=== PATIENT | female | born 1985 | race Caucasian/White ===

== ENCOUNTER 2021-08-02 21:51 | Emergency (ER) | payer OTHER ==
[2021-08-02 22:08] VITALS: BP 129/88; PULSE 96; TEMP 97; BMI 29.2
[2021-08-02] MEDS ORDERED: FAMOTIDINE 20 MG TABLET PO ONE (22:56)
[2021-08-02] MEDS ORDERED: diphenhydrAMINE HCL 50 MG CAPSULE PO ONE (22:56)
[2021-08-02 23:19] LABS: BASO % 0.4 % (0-2.0); EOS % 3.8 % (0-4.5); HEMOGLOBIN 13.2 GM/dL (10.7-15.3); MCH 28.9 pg (25.7-33.7); MCHC 32.9 g/dl (32.0-36.0); MEAN CELL VOLUME 87.8 fl (80-96); MEAN PLT VOLUME 8.2 fl (7.5-11.1); NEUT % 55.8 % (42.8-82.8); PLATELET COUNT 287 10^3/uL (134-434); RBC 4.56 M/mm3 (3.60-5.2); RDW 14.5 % (11.6-15.6); WHITE BLOOD COUNT 10.6 K/mm3 (4.0-10.0)
[2021-08-02] MEDS ORDERED: FAMOTIDINE 20 MG TABLET ONE (23:25)
[2021-08-02] MEDS ORDERED: diphenhydrAMINE HCL 25 MG CAPSULE (FP) PO ONE (23:25)
[2021-08-02] MEDS ORDERED: predniSONE 20 MG TABLET (UD) PO ONE (23:30)
[2021-08-02] MEDS ORDERED: predniSONE 10 MG TABLET (UD) ONE (23:38)
[2021-08-02] MEDS ORDERED: predniSONE 20 MG TABLET (UD) ONE (23:38)
[2021-08-02 23:39] LABS: CALCIUM 8.8 mg/dL (8.5-10.1)
[2021-08-02 23:40] LABS: ALBUMIN 3.7 g/dl (3.4-5.0)
[2021-08-02 23:43] LABS: CREATININE 0.9 mg/dL (0.55-1.3)
[2021-08-02 23:45] LABS: BILIRUBIN,TOTAL 0.4 mg/dL (0.2-1); TOT PROT 7.3 g/dl (6.4-8.2)
[2021-08-03] MEDS ORDERED: predniSONE 20 MG TABLET (UD) PO SCH (10:00)
== END 2021-08-03 02:36 | disposition home or self-care (01) ==
LOC: JER 21:51
DX: L50.9 Urticaria, unspecified (principal); R20.2 Paresthesia of skin
CPT/HCPCS: 36415; 70450-TC; 80053; 84703; 85025; 99284-25

== ENCOUNTER 2023-10-09 14:05 | Emergency (ER) | payer OTHER ==
[2023-10-09 14:25] VITALS: BP 143/85; PULSE 62; RESP 18; TEMP 98.2; BMI 29.2
[2023-10-09] MEDS ORDERED: diphenhydrAMINE HCL 25 MG CAPSULE (FP) PO ONE (15:04)
[2023-10-09] MEDS ORDERED: LORATADINE 10 MG TABLET ONE (15:12)
[2023-10-09] MEDS: LORATADINE 10 MG TABLET PO ONE (15:13)
== END 2023-10-09 15:52 | disposition home or self-care (01) ==
LOC: JER 14:05
DX: T78.40XA Allergy, unspecified, initial encounter (principal); R22.0 Localized swelling, mass and lump, head
CPT/HCPCS: 99283-25

== ENCOUNTER 2024-04-20 22:05 | Emergency (ER) | payer OTHER ==
[2024-04-20 22:12] VITALS: TEMP 97.9; BMI 29.2
[2024-04-20] MEDS ORDERED: ACETAMINOPHEN INJECTION 100 ML ONE (22:46)
[2024-04-20] MEDS: ACETAMINOPHEN 1000 MG/100 ML BAG IVPB ONE (23:16)
[2024-04-20] MEDS: SODIUM CHLORIDE 0.9% 500 ML INFUS.BAG IV ONE (23:16)
[2024-04-20 23:19] LABS: HEMATOCRIT 39.8 % (32.4-45.2); HEMOGLOBIN 13.1 GM/dL (10.7-15.3); MCH 28.2 pg (25.7-33.7); MEAN CELL VOLUME 85.4 fl (80-96); MEAN PLT VOLUME 7.9 fl (7.5-11.1); PLATELET COUNT 295 10^3/uL (134-434); RBC 4.66 M/mm3 (3.60-5.2); RDW 14.2 % (11.6-15.6); WHITE BLOOD COUNT 8.1 K/mm3 (4.0-10.0)
[2024-04-20 23:41] LABS: POTASSIUM 3.2 mmol/L (3.5-5.1)
[2024-04-20 23:44] LABS: ALBUMIN 3.5 g/dl (3.4-5.0); BLOOD UREA NITROGEN 17.6 mg/dL (7-18); CALCIUM 8.9 mg/dL (8.5-10.1); MAGNESIUM 1.8 mg/dL (1.8-2.4)
[2024-04-20 23:48] LABS: PHOSPHOROUS 2.5 mg/dL (2.5-4.9)
[2024-04-20 23:49] LABS: BILIRUBIN,TOTAL 0.7 mg/dL (0.2-1); TOT PROT 6.5 g/dl (6.4-8.2)
[2024-04-21] LABS: ANISOCYTOSIS 0; MACROCYTOSIS 0
[2024-04-21] MEDS ORDERED: POTASSIUM CHLORIDE ORAL LIQUID 20 MEQ/15 ML ONE (00:12)
[2024-04-21] MEDS: POTASSIUM CHLORIDE ORAL LIQUID 20 MEQ/15 ML PO ONE (00:19)
[2024-04-21 01:07] LABS: EPI CELLS >36 /uL (0-25.1); HYALINE CASTS 0 /uL (0-3.1); PH,URINE 5.5 (5.0-8.0); URINE APPEARANCE CLEAR; URINE BACTERIA 478 /uL (0-1359); URINE BILIRUBIN NEGATIVE (NEGATIVE); URINE COLOR YELLOW; URINE GLUCOSE (UA) NEGATIVE (NEGATIVE); URINE KETONE NEGATIVE (NEGATIVE); URINE LEUK ESTERASE NEGATIVE (NEGATIVE); URINE NITRITE NEGATIVE (NEGATIVE); URINE PROTEIN TRACE (NEGATIVE); URINE RBC 196 /uL (0-23.9); URINE UROBILINOGEN 0.2 mg/dL (0.2-1.0); URINE WBC 12 /uL (0-25.8)
[2024-04-21] MEDS ORDERED: AZITHROMYCIN 500 MG TABLET ONE (01:20)
[2024-04-21] MEDS ORDERED: AMOXICILLIN 500 MG CAPSULE (FP) ONE (01:20)
[2024-04-21] MEDS: AMOXICILLIN 500 MG CAPSULE (FP) PO ONE (01:26)
[2024-04-21] MEDS: SODIUM CHLORIDE 0.9% 500 ML INFUS.BAG IV ONE (01:26)
[2024-04-21] MEDS: AZITHROMYCIN 500 MG TABLET PO ONE (01:26)
[2024-04-21 02:59] VITALS: BP 110/71; PULSE 71; RESP 16
== END 2024-04-21 03:25 | disposition home or self-care (01) ==
LOC: JER 22:05
PROC: 3E033NZ Introduction of Analgesics, Hypnotics, Sedatives into Peripheral Vein, Percutaneous Approach (ICD-10-PCS; principal; 2024-04-20)
DX: R53.1 Weakness (principal); J18.9 Pneumonia, unspecified organism; R07.89 Other chest pain; M54.50 Low back pain, unspecified; R53.81 Other malaise; Z20.822 Contact with and (suspected) exposure to COVID-19
CPT/HCPCS: 0241U-QW; 36415; 71045-TC-FY; 80053; 81003; 83735; 84100; 84484; 84703; 85025; 87086; 93005; 93010; 96374; 99285-25; J0131